=== PATIENT | male | born 1990 | race Asian ===

== ENCOUNTER 2025-10-24 23:52 | Emergency (ER) | payer OTHER, SELFPAY ==
[2025-10-24 23:53] VITALS: BMI 22.6
[2025-10-25 00:07] VITALS: BP 127/81; PULSE 51; RESP 18; TEMP 37; O2SAT 99
--- NOTE | 2025-10-25 00:37 | EDNOTE_ITS ---
ED Wound/Laceration-RME/HPI General Chief Complaint: Wound/Laceration Stated Complaint: WORK INJURY-RIGHT INDEX FINGER LACERATION Time Seen by Provider: 10/25/25 00:40 Arrival date/time: 10/24/25 23:52 Related Data Allergies Allergy/AdvReac Type Severity Reaction Status Date / Time No Known Allergies Allergy Verified 10/24/25 23:53 ED Exam Narrative Physical exam: Physical Exam: GENERAL: Awake, answers questions appropriately, appears stated age HEENT: NC/AT. Moist mucosa. PERRLA/EOMI. CARDIO: Heart RRR, no obvious murmurs, no JVD. PULM: No coughing or visible SOB. Lungs CTA B/L. GI: Abdomen soft, NT/ND, +BS. SKIN/MSK/EXT: Right index finger with a 1 x 0.1 cm laceration. No discoloration/rashes/edema/amputations noted. +Pedal pulses present B/L. NEURO: Oriented x3, Moves extremities x4, no focal neurologic deficits noted. Course Quality Measures none Vital Signs Vital signs: Vital Signs Temperature 98.6 F 10/25/25 00:07 Pulse Rate 51 L 10/25/25 00:07 Respiratory Rate 18 10/25/25 00:07 Blood Pressure 127/81 10/25/25 00:07 Pulse Oximetry (%) 99 10/25/25 00:07 Oxygen Delivery Method Room Air 10/25/25 00:07 PROCEDURES: Procedure Comment Procedure Name: Laceration Repair Indication: Reduce risk of infection Location: Right index finger Pre-Procedure Diagnosis: Laceration Post-Procedure Diagnosis: Repaired Laceration Informed consent was obtained before procedure started. PROCEDURE: The appropriate timeout was taken. The area was prepped and draped in the usual sterile fashion. Local anesthesia was achieved using 10cc of Lidocaine 1%. The wound was copiously irrigated. 1 Nylon interrupted suture was placed. Estimated blood loss was less than 0.5 mL. A dressing was applied to the area and anticipatory guidance, as well as standard post-procedure care, was explained. Return precautions are given.?The patient tolerated the procedure well without complications. Follow-up visit set for suture removal and evaluation of the laceration with PCP to be completed within the next 2 weeks. Wound / Laceration MDM Narrative MDM Narrative:: HPI: 35-year-old male with no significant past medical history presented to the ED on 10/25 after he had a workplace injury resulting in a laceration of his right index finger. 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 Patient does not endorse any difficulty moving the finger and also denies any changes in the color. Patient otherwise denies having any concerning symptoms such as chest pain, shortness of breath, dizziness, nausea, vomiting or difficulty ambulating. On examination, please refer to the physical exam findings above; patient presented normotensive with bradycardia heart rate of 51, respiratory rate 18, afebrile satting 99 on room air. Procedure note as above #Right index finger laceration Sutured Plan: Please follow-up with PCP within 2 weeks to have sutures removed Patient seen and assessed with attending Dr. Little Campo, DO PGY-2 Internal Medicine - [facility] Patient data External records reviewed:: None Clinical information provided by:: patient Social determinants that could affect healthcare access:: none Patient has the following chronic illnesses:: None How is presenting disease/condition affected by chronic disease/condition?: no chronic disease Evaluation data The following diagnostics were reviewed and interpreted by me:: other (specify) (Physical exam findings) Lab and/or radiology exams considered but not ordered:: See above Interpretation Summary: See above Medications / Prescriptions Medications or Prescriptions considered but not ordered:: See above Medication administrations:: See above Consultations Consultation(s) initiated? (list below): No Diagnosis Wound Differential Diagnosis: laceration Most likely diagnosis given after review of the tests above:: Laceration of right index finger at second PIP joint Admission Indicated Admission indicated?: not indicated Admission Request Was there a request for admission?: No Disposition Plan Disposition Plan: Discharge Discharge Attestation Discharge Attestation: The patient and all family members were given an opportunity to ask questions and understood the discharge instructions. Discharge instructions specifically effects, indications for sooner follow up or return to the emergency department, and the expected course of current diagnosis. Patient condition: Stable Discharge Plan Plan Patient Disposition: HOME (Self Care) Discharge Disposition comment: Please follow-up with PCP within 2 weeks to have sutures removed Patient condition on transfer: Stable Problem List Clinical Impression: Finger laceration Patient/Caregiver Discharge Instructions Print Language: [place] Stand Alone Forms: [employer]., Patient Portal Info Letter
== END 2025-10-25 01:23 | disposition home or self-care (01) ==
LOC: SERX 10-25 01:39
PROVIDERS: Emergency Provider Emergency Medicine
DX: S61.210A Laceration without foreign body of right index finger without damage to nail, initial encounter (principal); W26.8XXA Contact with other sharp object(s), not elsewhere classified, initial encounter; Y93.G1 Activity, food preparation and clean up; Y92.511 Restaurant or cafe as the place of occurrence of the external cause; Y99.0 Civilian activity done for income or pay
CPT/HCPCS: 12001; 99281